=== PATIENT | male | born 1955 | race Caucasian/White ===

== ENCOUNTER → 2016-05-27 | Outpatient (CLI) | payer BC ==
[2016-05-27 16:19] LABS: ALT 35 U/L (21-72); AST 25 U/L (17-59)
== END | disposition home or self-care (01) ==
LOC: LABWHC1 15:27
PROVIDERS: ATTEND Podiatrist Foot & Ankle Surgery
DX: K74.60 Unspecified cirrhosis of liver (principal)
CPT/HCPCS: 36415; 84450; 84460

== ENCOUNTER → 2016-07-07 | Outpatient (CLI) | payer BC ==
[2016-07-07 09:16] LABS: ALT 32 U/L (21-72); AST 29 U/L (17-59)
== END | disposition home or self-care (01) ==
LOC: LABWHC1 08:21
PROVIDERS: ATTEND Podiatrist Foot & Ankle Surgery
DX: K74.60 Unspecified cirrhosis of liver (principal)
CPT/HCPCS: 36415; 84450; 84460

== ENCOUNTER 2020-12-02 08:42 | Day surgery (SDC) | payer MEDICARE, BC ==
[2020-11-28 08:43] VITALS: BMI 30.9
[~2020-12-02 08:42] MED LIST: LACTATED RINGERS 1,000 ML IV SCH; LIDOCAINE 1% (10MG/ML) FOR IV START INTRADERMA PRN
[2020-12-02 09:03] VITALS: RESP 16; TEMP 97.4
[2020-12-02] MEDS ORDERED: PROPOFOL 10 MG/ML 20 ML VIAL IV ONE (09:20)
[2020-12-02] MEDS ORDERED: fentaNYL (PF) 50 MCG/ML 2 ML AMP ONE (09:20)
[2020-12-02] MEDS ORDERED: MIDAZOLAM 2 MG/2 ML VIAL ONE (09:20)
--- NOTE | 2020-12-02 09:23 | P.GSHP ---
History of Present Illness H&P Date: 12/02/20 Chief Complaint: Colon cancer screening Patient here today for colonoscopy. Last colonoscopy 10 years ago. No bowel complaints. No family history of colon cancer. Past Medical History Past Medical History: No Reported History History of Any Multi-Drug Resistant Organisms: None Reported Past Surgical History: Appendectomy, Joint Replacement, Orthopedic Surgery Additional Past Surgical History / Comment(s): Bilateral hip replacements, right knee surgery, colonoscopy. Past Anesthesia/Blood Transfusion Reactions: No Reported Reaction Past Psychological History: No Psychological Hx Reported Smoking Status: Never smoker Past Alcohol Use History: Occasional Past Drug Use History: None Reported - Past Family History Sister(s) Family Medical History: Cancer Medications and Allergies Home Medications Medication Instructions Recorded Confirmed Type No Known Home Medications 11/28/20 12/02/20 History Allergies Allergy/AdvReac Type Severity Reaction Status Date / Time No Known Allergies Allergy Verified 12/02/20 09:04 Surgical - Exam Vital Signs Temp Pulse Resp BP Pulse Ox 97.4 F L 62 16 145/77 96 12/02/20 09:02 12/02/20 09:02 12/02/20 09:02 12/02/20 09:02 12/02/20 09:02 Physical exam: General: Well-developed, well-nourished HEENT: Normocephalic, sclerae nonicteric Abdomen: Nontender, nondistended Extremities: No edema Neuro: Alert and oriented Assessment and Plan (1) Colon cancer screening Narrative/Plan: Will proceed with colonoscopy at this time Current Visit: Yes Status: Acute Code(s): Z12.11 - ENCOUNTER FOR SCREENING FOR MALIGNANT NEOPLASM OF COLON SNOMED Code(s): 985170957
--- NOTE | 2020-12-02 09:36 | P.PCN ---
Date of Procedure: 12/02/20 Procedure(s) Performed: PREOPERATIVE DIAGNOSIS: Colon cancer screening POSTOPERATIVE DIAGNOSIS: Normal exam PROCEDURE: Colonoscopy ANESTHESIA: MAC SURGEON: Denny Steinberg M.D. SPECIMENS: None ENDOSCOPIC PROCEDURE: The patient was placed on the endoscopy table in the left decubitus position. The Olympus colonoscope was inserted into the anus and passed under direct visualization to the base of the cecum. The appendiceal orifice was visualized. From that point the scope was slowly withdrawn inspecti ng all surfaces carefully. There were no neoplastic inflammatory or polypoid lesions throughout the cecum, ascending, transverse, descending, sigmoid and rectum. There was no visible diverticulosis noted. Digital rectal examination was normal. The patient was taken to the recovery room in stable condition per anesthesia guidelines. RECOMMENDATIONS: Resume diet. Follow-up colonoscopy 10 years.
[2020-12-02 10:12] VITALS: BP 145/85; PULSE 61
== END 2020-12-02 10:20 | disposition home or self-care (01) ==
LOC: ORWHC2ENDO 08:42
PROVIDERS: ATTEND Surgery
DX: Z12.11 Encounter for screening for malignant neoplasm of colon (principal); Z90.49 Acquired absence of other specified parts of digestive tract; Z80.9 Family history of malignant neoplasm, unspecified
CPT/HCPCS: G0121; J2250; J3010; J2704

== ENCOUNTER 2023-01-01 07:19 | Inpatient (IN) | payer MEDICARE, BC ==
[2023-01-01] MEDS ORDERED: METOCLOPRAMIDE 5 MG/ML 2 ML VIAL IVP STA (07:36)
[2023-01-01] MEDS ORDERED: FAMOTIDINE 20 MG/2 ML VIAL IV STA (07:36)
[2023-01-01 07:57] LABS: Basophils % (A) 0 %; Eosinophils # (A) 0.2 k/uL (0-0.7); Eosinophils % (A) 2 %; HCT 45.1 % (39.0-53.0); HGB 15.5 gm/dL (13.0-17.5); Lymphocytes # (A) 1.7 k/uL (1.0-4.8); Lymphocytes % (A) 15 %; MCHC 34.4 g/dL (31.0-37.0); Mean Platelet Volume 7.5; Monocytes # (A) 0.7 k/uL (0-1.0); Monocytes % (A) 6 %; Neutrophils # (A) 8.9 k/uL (1.3-7.7); Neutrophils % (A) 76 %; Platelet Count 240 k/uL (150-450); RBC 4.84 m/uL (4.30-5.90); WBC 11.6 k/uL (3.8-10.6)
[2023-01-01 08:07] LABS: Partial Thromboplastin Time 23.8 sec (22.0-30.0)
--- NOTE | 2023-01-01 08:07 | ED ---
Abdominal Pain HPI - General Chief Complaint: Abdominal Pain Stated Complaint: indigestion Time Seen by Provider: 01/01/23 07:24 Source: patient, RN notes reviewed Mode of arrival: ambulatory Limitations: no limitations - History of Present Illness Initial Comments: 67-year-old male presents emergency Department chief complaint of epigastric abdominal pain. Patient states it started yesterday afternoon after eating a sandwich. He states that he stopped eating and took some antacids. Patient did not have any significant relief he states that he was able to go out there last night and states that he did not eat as much as usual but denies any difficulty eating. He states that home felt worse. He did take omeprazole. Patient states that he also made himself vomit but is not having relief of symptoms. He has meant that he has symptoms similar to this about a month ago but resolved on its own. Patient states he continues to have pain, states that he was stented, increasing bloating. He denies any pain radiates to his back, chest. Denies chest pain denies shortness of breath. He's had a prior appendectomy no other abdominal surgeries. Denies any current daily medications. Patient has no change in bowel habits denies any dysuria no fevers or chills - Related Data Home Medications Medication Instructions Recorded Confirmed No Known Home Medications 11/28/20 12/02/20 Allergies Allergy/AdvReac Type Severity Reaction Status Date / Time No Known Allergies Allergy Verified 01/01/23 07:23 Review of Systems ROS Statement: Those systems with pertinent positive or pertinent negative responses have been documented in the HPI. ROS Other: All systems not noted in ROS Statement are negative. Past Medical History Past Medical History: No Reported History History of Any Multi-Drug Resistant Organisms: None Reported Past Surgical History: Appendectomy, Joint Replacement, Orthopedic Surgery Additional Past Surgical History / Comment(s): Bilateral hip replacements, right knee surgery, colonoscopy. Past Anesthesia/Blood Transfusion Reactions: No Reported Reaction Past Psychological History: No Psychological Hx Reported Smoking Status: Never smoker Past Alcohol Use History: Occasional Past Drug Use History: None Reported - Past Family History Sister(s) Family Medical History: Cancer General Exam General appearance: alert, in no apparent distress Head exam: Present: atraumatic, normocephalic, normal inspection Eye exam: Present: normal appearance, PERRL, EOMI. Absent: scleral icterus, conjunctival injection, periorbital swelling ENT exam: Present: normal exam, normal oropharynx, mucous membranes moist Neck exam: Present: normal inspection, full ROM. Absent: tenderness, meningismus, lymphadenopathy Respiratory exam: Present: normal lung sounds bilaterally. Absent: respiratory distress, wheezes, rales, rhonchi, stridor Cardiovascular Exam: Present: regular rate, normal rhythm, normal heart sounds. Absent: systolic murmur, diastolic murmur, rubs, gallop, clicks GI/Abdominal exam: Present: soft, tenderness, normal bowel sounds. Absent: distended, guarding, rebound, rigid Back exam: Absent: CVA tenderness (R), CVA tenderness (L) Neurological exam: Present: alert Skin exam: Present: warm, dry, intact, normal color. Absent: rash Course Vital Signs 01/01/23 07:20 Temperature 98.1 F Pulse Rate 95 Respiratory 20 Rate Blood Pressure 163/87 O2 Sat by Pulse 97 Oximetry Medical Decision Making - Medical Decision Making Was pt. sent in by a medical professional or institution (Dr. PA, ART CONSERVATOR, urgent care, hospital, or care home...) When possible be specific @ -No Did you speak to anyone other than the patient for history (EMS, parent, family, police, friend...)? What history was obtained from this source @ -No Did you review nursing and triage notes (agree or disagree)? Why? @ -I reviewed and agree with nursing and triage notes Were old charts reviewed (outside hosp., previous admission, EMS record, old EKG, old radiological studies, urgent care reports/EKG's, care home records)? Report findings @ -No old charts were reviewed Differential Diagnosis (chest pain, altered mental status, abdominal pain women, abdominal pain men, vaginal bleeding, weakness, fever, dyspnea, syncope, headache, dizziness, GI bleed, back pain, seizure, CVA, palpatations, mental health, musculoskeletal)? @ -Differential Abdominal Pain Men: Appendicitis, cholecystitis, diverticulosis, ischemic bowel, pancreatitis, hepatitis, UTI, gastroenteritis, AAA, incarcerated hernia, bowel obstruction, constipation, inflammatory bowel, hepatitis, peptic ulcer disease, splenic infarction, perforated viscus, testicular torsion, this is not meant to be an all-inclusive listble EKG interpreted by me (3pts min.). @ -As above X-rays interpreted by me (1pt min.). @ -None done CT interpreted by me (1pt min.). @ -CT abdomen and pelvis shows evidence of acute cholecystitis gallbladder wall thickening, pericholecystic fluid and gallstones U/S interpreted by me (1pt. min.). @ -None done What testing was considered but not performed or refused? (CT, X-rays, U/S, labs)? Why? @ -None What meds were considered but not given or refused? Why? @ -None Did you discuss the management of the patient with other professionals (professionals i.e. , PA, ART CONSERVATOR, lab, RT, psych nurse, social service technician, kraft digester operator, teacher, chief human resources officer, outsole caser)? Give summary @ -Dr. Way for admission for acute cholecystitis Was smoking cessation discussed for >3mins.? @ -No Was critical care preformed (if so, how long)? @ -No Were there social determinants of health that impacted care today? How? (Homelessness, low income, unemployed, alcoholism, drug addiction, transportation, low edu. Level, literacy, decrease access to med. care, [facility] [facility], rehab)? @ -No Was there de-escalation of care discussed even if they declined (Discuss DNR or withdrawal of care, Hospice)? DNR status @ -No What co-morbidities impacted this encounter? (DM, HTN, Smoking, COPD, CAD, Cancer, CVA, ARF, Chemo, Hep., AIDS, mental health diagnosis, sleep apnea, morbid obesity)? @ -None Was patient admitted / discharged? Hospital course, mention meds given and route, prescriptions, significant lab abnormalities, going to OR and other pertinent info. @ -Admitted for acute cholecystitis based on CT, physical findings lab for studies reviewed. Undiagnosed new problem with uncertain prognosis? @ -No Drug Therapy requiring intensive monitoring for toxicity (Heparin, Nitro, Insulin, Cardizem)? @ -No Were any procedures done? @ -No Diagnosis/symptom? @ -Acute cholecystitis Acute, or Chronic, or Acute on Chronic? @ -Acute Uncomplicated (without systemic symptoms) or Complicated (systemic symptoms)? @ -Complicated Side effects of treatment? @ -No Exacerbation, Progression, or Severe Exacerbation? @ -No Poses a threat to life or bodily function? How? (Chest pain, [place], [place], pneumonia, PE, COPD, DKA, ARF, appy, cholecystitis, CVA, Diverticulitis, Homicidal, Suicidal, threat to staff... and all critical care pts) @ -yes surgical risk - Lab Data Result diagrams: 01/01/23 07:43 01/01/23 07:43 Lab Results 01/01/23 01/01/23 01/01/23 Range/Units 07:43 07:43 07:43 WBC 11.6 H (3.8-10.6) k/uL RBC 4.84 (4.30-5.90) m/uL Hgb 15.5 (13.0-17.5) gm/dL Hct 45.1 (39.0-53.0) % MCV 93.0 (80.0-100.0) fL MCH 32.0 (25.0-35.0) pg MCHC 34.4 (31.0-37.0) g/dL RDW 12.0 (11.5-15.5) % Plt Count 240 (150-450) k/uL MPV 7.5 Neutrophils % 76 % Lymphocytes % 15 % Monocytes % 6 % Eosinophils % 2 % Basophils % 0 % Neutrophils # 8.9 H (1.3-7.7) k/uL Lymphocytes # 1.7 (1.0-4.8) k/uL Monocytes # 0.7 (0-1.0) k/uL Eosinophils # 0.2 (0-0.7) k/uL Basophils # 0.0 (0-0.2) k/uL PT 11.0 (10.0-12.5) sec INR 1.0 (<1.2) APTT 23.8 (22.0-30.0) sec Sodium 137 (137-145) mmol/L Potassium 4.4 (3.5-5.1) mmol/L Chloride 103 (98-107) mmol/L Carbon Dioxide 26 (22-30) mmol/L Anion Gap 8 mmol/L BUN 19 (9-20) mg/dL Creatinine 0.83 (0.66-1.25) mg/dL Est GFR (CKD-EPI)AfAm >90 (>60 ml/min/1.73 sqM) Est GFR (CKD-EPI)NonAf >90 (>60 ml/min/1.73 sqM) Glucose 141 H (74-99) mg/dL Plasma Lactic Acid Gregory (0.7-2.0) mmol/L Calcium 9.4 (8.4-10.2) mg/dL Total Bilirubin 0.9 (0.2-1.3) mg/dL AST 30 (17-59) U/L ALT 64 H (4-49) U/L Alkaline Phosphatase 60 (38-126) U/L Troponin I (0.000-0.034) ng/mL Total Protein 7.3 (6.3-8.2) g/dL Albumin 4.3 (3.5-5.0) g/dL Amylase 53 (30-110) U/L Lipase 90 (23-300) U/L Urine Color Urine Appearance (Clear) Urine pH (5.0-8.0) Ur Specific Dudley (1.001-1.035) Urine Protein (Negative) Urine Glucose (UA) (Negative) Urine Ketones (Negative) Urine Blood (Negative) Urine Nitrite (Negative) Urine Bilirubin (Negative) Urine Urobilinogen (<2.0) mg/dL Ur Leukocyte Esterase (Negative) 01/01/23 01/01/23 01/01/23 Range/Units 07:43 07:43 08:27 WBC (3.8-10.6) k/uL RBC (4.30-5.90) m/uL Hgb (13.0-17.5) gm/dL Hct (39.0-53.0) % MCV (80.0-100.0) fL MCH (25.0-35.0) pg MCHC (31.0-37.0) g/dL RDW (11.5-15.5) % Plt Count (150-450) k/uL MPV Neutrophils % % Lymphocytes % % Monocytes % % Eosinophils % % Basophils % % Neutrophils # (1.3-7.7) k/uL Lymphocytes # (1.0-4.8) k/uL Monocytes # (0-1.0) k/uL Eosinophils # (0-0.7) k/uL Basophils # (0-0.2) k/uL PT (10.0-12.5) sec INR (<1.2) APTT (22.0-30.0) sec Sodium (137-145) mmol/L Potassium (3.5-5.1) mmol/L Chloride (98-107) mmol/L Carbon Dioxide (22-30) mmol/L Anion Gap mmol/L BUN (9-20) mg/dL Creatinine (0.66-1.25) mg/dL Est GFR (CKD-EPI)AfAm (>60 ml/min/1.73 sqM) Est GFR (CKD-EPI)NonAf (>60 ml/min/1.73 sqM) Glucose (74-99) mg/dL Plasma Lactic Acid Gregory 1.0 (0.7-2.0) mmol/L Calcium (8.4-10.2) mg/dL Total Bilirubin (0.2-1.3) mg/dL AST (17-59) U/L ALT (4-49) U/L Alkaline Phosphatase (38-126) U/L Troponin I 0.017 (0.000-0.034) ng/mL Total Protein (6.3-8.2) g/dL Albumin (3.5-5.0) g/dL Amylase (30-110) U/L Lipase (23-300) U/L Urine Color Yellow Urine Appearance Clear (Clear) Urine pH 6.0 (5.0-8.0) Ur Specific Dudley 1.024 (1.001-1.035) Urine Protein Trace H (Negative) Urine Glucose (UA) Negative (Negative) Urine Ketones Negative (Negative) Urine Blood Negative (Negative) Urine Nitrite Negative (Negative) Urine Bilirubin Negative (Negative) Urine Urobilinogen <2.0 (<2.0) mg/dL Ur Leukocyte Esterase Negative (Negative) - EKG Data -: EKG Interpreted by Ga EKG Comments: EKG/7:31/bradycardia with a rate of 5 WI 155 QRS 102 QT/QTC 418/406 Disposition Clinical Impression: Acute cholecystitis Disposition: ADMITTED IP TO THIS HOSP Condition: Fair Referrals: Donavon Mckinney MD [Primary Care Provider] - 1-2 days Time of Disposition: 09:43
[2023-01-01 08:25] LABS: ALT 64 U/L (4-49); AST 30 U/L (17-59); African American GFR (CKD) >90 (>60 ml/min/1.73 sqM); Albumin 4.3 g/dL (3.5-5.0); Alkaline Phosphatase 60 U/L (38-126); Amylase 53 U/L (30-110); Anion Gap 8 mmol/L; Blood Urea Nitrogen 19 mg/dL (9-20); Calcium 9.4 mg/dL (8.4-10.2); Carbon Dioxide 26 mmol/L (22-30); Chloride 103 mmol/L (98-107); Glucose 141 mg/dL (74-99); Lipase 90 U/L (23-300); Non-African American GFR(CKD) >90 (>60 ml/min/1.73 sqM); Potassium 4.4 mmol/L (3.5-5.1); Sodium 137 mmol/L (137-145); Total Bilirubin 0.9 mg/dL (0.2-1.3); Total Protein 7.3 g/dL (6.3-8.2)
[2023-01-01 08:40] LABS: Appearance,Urine Clear (Clear); Bilirubin,Urine Negative (Negative); Blood,Urine Negative (Negative); Color,Urine Yellow; Glucose,Urine (UA) Negative (Negative); Ketones,Urine Negative (Negative); Leukocyte Esterase,Urine Negative (Negative); Nitrite,Urine Negative (Negative); Protein,Urine Trace (Negative); Specific Gravity,Urine 1.024 (1.001-1.035); Urobilinogen,Urine <2.0 mg/dL (<2.0)
--- NOTE | 2023-01-01 09:26 | CT ---
EXAMINATION TYPE: CT abdomen pelvis w con DATE OF EXAM: 01/01/2023 COMPARISON: None HISTORY: Epigastric pain and pressure CT DLP: 1571.5 mGycm CONTRAST: CT scan of the abdomen and pelvis is performed without Oral Contrast and with IV Contrast, patient in jected with 100 mL of Isovue 300. FINDINGS: LUNG BASES-: No visible nodule. No infiltrate. LIVER/GB: The gallbladder is hydropic and measures 10.1 cm in length. There are multiple small gallst ones seen with gallbladder wall thickening and pericholecystic fluid. Acute cholecystitis is difficul t to exclude. Correlate clinically. No space occupying hepatic lesion. Biliary tree is of normal agnes nelsy. PANCREAS: No inflammation. No distinct mass. SPLEEN: No splenic enlargement. No lesion seen. ADRENALS: No nodule. No thickening. KIDNEYS/BLADDER: No hydronephrosis. No nephrolithiasis. No distinct renal mass. Urinary bladder g rossly unremarkable. BOWEL: Appendectomy changes noted. Normal bowel caliber. No inflammation. GENITAL ORGANS: No gross abnormality. LYMPH NODES: No greater than 1cm abdominal or pelvic lymph nodes are appreciated. AORTA: No significant abnormality. OSSEOUS STRUCTURES: Bilateral hip prostheses noted resulting in streak artifact within the pelvis hawkins iting evaluation. OTHER: No significant additional abnormality is seen. IMPRESSION: 1. Correlate for acute cholecystitis.
[2023-01-01] MEDS ORDERED: NALOXONE 0.4 MG/ML 1 ML VIAL IV PRN (09:51)
[2023-01-01] MEDS ORDERED: ACETAMINOPHEN TAB 325 MG TAB PO PRN (09:51)
[2023-01-01] MEDS ORDERED: HYDROmorphone 0.5 MG/0.5 ML SYRINGE IVP PRN (09:51)
[2023-01-01] MEDS ORDERED: HYDROcodone/APAP 5-325MG 1 EACH TAB PO PRN (09:51)
[2023-01-01] MEDS ORDERED: SODIUM CHLORIDE 0.9% 1,000 ML IV SCH (10:00)
[2023-01-01] MEDS: PIPERACILLIN-TAZOBACTAM 3.375 GM in SODIUM CHLORIDE 0.9% 100 ML IVPB SCH ×2 (11:17→16:18)
[2023-01-01] MEDS: ONDANSETRON 4 MG/2 ML VIAL IVP PRN (11:27)
--- NOTE | 2023-01-01 11:28 | P.GSHP ---
History of Present Illness H&P Date: 01/01/23 CHIEF COMPLAINT: Abdominal pain HISTORY OF PRESENT ILLNESS: The patient is a 67 year old male who presents with diffuse abdominal pain after 1:30 pm yesterday eating a meatloaf sandwich. He reports new moderate abdominal distention. He reports no prior stress tests. He reports no prior abnormal EKG although he sees his doctor routinely yearly. He had diagnostic studies demonstrating new acute cholecystitis. He denies being on any medications at home. PAST MEDICAL HISTORY: See list and reviewed PAST SURGICAL HISTORY: See list and reviewed MEDICATIONS: See list and reviewed ALLERGIES: See list and reviewed SOCIAL HISTORY: See list and reviewed FAMILY HISTORY: See list and reviewed REVIEW OF ORGAN SYSTEMS: CONSTITUTIONAL: No fevers or chills. No recent weight loss. EYES: Denies any trouble with vision. No glasses. HEENT: No difficulties with hearing. No nosebleeds. No difficulty swallowing. RESPIRATORY: Denies pneumonia. Denies any troubles with breathing or dyspnea on exertion. CARDIOVASCULAR: Denies any chest pain, palpitations, or recent heart attacks. GASTROINTESTINAL: Denies prior abdominal pain. He gets routine colonoscopy GENITOURINARY: Denies any blood in urine or increased urinary frequency. NEUROLOGICAL: Denies any numbness or tingling along the distal extremities. No seizure disorders or headaches. MUSCULOSKELETAL: Denies any back pain, stiffness or joint arthritis. SKIN: No current skin cancer. No rash. PSYCHIATRIC: Denies current depression or suicidal thoughts. ENDOCRINE: Denies current thyroid disorders. Denies any blood sugar glucose intolerance. HEME/LYMPHATIC: Denies any lumps and bumps around the neck. No recent deep venous thrombosis. ALLERGY/IMMUNOLOGY: No immunoglobulin therapy. No immune deficiencies. BREAST: Denies current breast lumps, pain or nipple discharge. PHYSICAL EXAM: VITALS: Reviewed CONSTITUTIONAL: Well developed and in no acute distress. EYES: Conjuctivae without sclera icterus. Extraocular movements grossly intact. HEAD, EARS, NOSE, THROAT: Moist buccal mucosa. Head is atraumatic, normocephalic . Hears conversational speech. No nasal drainage. NECK: Supple. No JV distention. No thyroidomegaly. RESPIRATORY: Non-labored respirations and equal bilateral excursions. No gross wheezes. CARDIOVASCULAR: Palpable 2+ radial pulses. ABDOMEN: Distended. No diffuse peritonitis. LYMPH: No neck lymphadenopathy. MUSCULOSKELETAL: No clubbing cyanosis or edema SKIN: Warm and well perfused with good skin turgor. NEUROLOGIC: Cranial nerves II through XII grossly intact. No focal or lateralizing signs. PSYCH: Appropriate affect. Alert and oriented to person, place and time. Displays appropriate insight. CLINCAL LABS: Reviewed. WBC elevated. LFTs elevated. IMAGING: Independently reviewed. CT of the abdomen and pelvis independently reviewed demonstrated distended gallbladder presence of gallstones and inflammatory changes about the gallbladder. Features consistent with cholecystitis. Moderate stool along the ascending colon. This is my independent interpretation. RADIOLOGY: Report reviewed. Early acute cholecystitis EKG: Abnormal EKG with sinus bradycardia, atrial enlargement RECORDS: previous old records reviewed. Prior assessment for cirrhosis. ASSESSMENT: 1. Acute cholecystitis 2. Obesity due to excess calories, BMI 31.7 3. Abnormal LFTs 4. History cirrhosis per records 5. Abnormal EKG PLAN: 1. IV fluid hydration. 2. IV antibiotics. 3. Cardiology consultation for new abnormal EKG and cardiac risk assessment prior to surgery. 4. ECHO ordered for new abnormal EKG 5. Clear liquid diet/low fat diet in the interim. 6. Inpatient hospitalization for cholecystitis, abnormal EKG and IV antibiotics. ADVANCE DIRECTIVE: Past Medical History Past Medical History: No Reported History History of Any Multi-Drug Resistant Organisms: None Reported Past Surgical History: Appendectomy, Joint Replacement, Orthopedic Surgery Additional Past Surgical History / Comment(s): Bilateral hip replacements, right knee surgery, colonoscopy. Past Anesthesia/Blood Transfusion Reactions: No Reported Reaction Past Psychological History: No Psychological Hx Reported Smoking Status: Never smoker Past Alcohol Use History: Occasional Past Drug Use History: None Reported - Past Family History Sister(s) Family Medical History: Cancer Medications and Allergies Home Medications Medication Instructions Recorded Confirmed Type No Known Home Medications 11/28/20 01/01/23 History Allergies Allergy/AdvReac Type Severity Reaction Status Date / Time No Known Allergies Allergy Verified 01/01/23 10:41 Surgical - Exam Vital Signs Temp Pulse Resp BP Pulse Ox 98.1 F 95 20 163/87 97 01/01/23 07:20 01/01/23 07:20 01/01/23 07:20 01/01/23 07:20 01/01/23 07:20 Results - Labs 01/01/23 07:43 01/01/23 07:43 Abnormal Lab Results - Last 24 Hours (Table) 01/01/23 01/01/23 01/01/23 Range/Units 07:43 07:43 08:27 WBC 11.6 H (3.8-10.6) k/uL Neutrophils # 8.9 H (1.3-7.7) k/uL Glucose 141 H (74-99) mg/dL ALT 64 H (4-49) U/L Urine Protein Trace H (Negative) Diabetes panel 01/01/23 Range/Units 07:43 Sodium 137 (137-145) mmol/L Potassium 4.4 (3.5-5.1) mmol/L Chloride 103 (98-107) mmol/L Carbon Dioxide 26 (22-30) mmol/L BUN 19 (9-20) mg/dL Creatinine 0.83 (0.66-1.25) mg/dL Glucose 141 H (74-99) mg/dL Calcium 9.4 (8.4-10.2) mg/dL AST 30 (17-59) U/L ALT 64 H (4-49) U/L Alkaline Phosphatase 60 (38-126) U/L Total Protein 7.3 (6.3-8.2) g/dL Albumin 4.3 (3.5-5.0) g/dL Calcium panel 01/01/23 Range/Units 07:43 Calcium 9.4 (8.4-10.2) mg/dL Albumin 4.3 (3.5-5.0) g/dL Pituitary panel 01/01/23 Range/Units 07:43 Sodium 137 (137-145) mmol/L Potassium 4.4 (3.5-5.1) mmol/L Chloride 103 (98-107) mmol/L Carbon Dioxide 26 (22-30) mmol/L BUN 19 (9-20) mg/dL Creatinine 0.83 (0.66-1.25) mg/dL Glucose 141 H (74-99) mg/dL Calcium 9.4 (8.4-10.2) mg/dL Adrenal panel 01/01/23 Range/Units 07:43 Sodium 137 (137-145) mmol/L Potassium 4.4 (3.5-5.1) mmol/L Chloride 103 (98-107) mmol/L Carbon Dioxide 26 (22-30) mmol/L BUN 19 (9-20) mg/dL Creatinine 0.83 (0.66-1.25) mg/dL Glucose 141 H (74-99) mg/dL Calcium 9.4 (8.4-10.2) mg/dL Total Bilirubin 0.9 (0.2-1.3) mg/dL AST 30 (17-59) U/L ALT 64 H (4-49) U/L Alkaline Phosphatase 60 (38-126) U/L Total Protein 7.3 (6.3-8.2) g/dL Albumin 4.3 (3.5-5.0) g/dL
[2023-01-01] MEDS: SIMETHICONE 40 MG/0.6 ML DROPS 2,000 MG/30 ML BOTTLE PO SCH ×3 (14:18→22:11)
[2023-01-01] MEDS: SODIUM CHLORIDE 0.9% 1,000 ML IV SCH ×2 (14:18→21:51)
--- NOTE | 2023-01-01 17:19 | P.CRDCN ---
History of Present Illness Consult date: 01/01/23 History of present illness: HISTORY OF PRESENTING ILLNESS Patient is a 67-year-old male with no significant past medical history who presented to the hospital with the chief complaint of epigastric and right upper quadrant abdominal pain after eating the sandwich yesterday. Since eating he has been feeling bloated and uncomfortable. His CT abdomen showed concerns of possible acute cholecystitis and he is being evaluated by surgery team for possible cholecystectomy. Cardiology was consulted for perioperative cardiac risk assessment. Patient denies any prior cardiac history. He denies any history of cancers. He denies any prior history of stroke TIA hypertension diabetes. He denies any family history of premature coronary artery disease cancers. He denies any history of smoking decreased reveals marijuana use or alcohol use. He reports good exercise tolerance with no reduction in his exercise capacity lately. He denies any active chest pain chest pressure with exertion, denies any shortness of breath with exertion orthopnea or paroxysmal nocturnal dyspnea. He denies any palpitations lightheadedness or dizziness His ECG shows sinus bradycardia with no significant ST-T wave changes diagnostic for ischemia His echo cardiac exam showed an EF of 55% with no regional wall motion abnormality or major valvular dysfunction no concerns of significant diastolic dysfunction REVIEW OF SYSTEMS 14 point review of system is negative except what is mentioned above in HPI. PHYSICAL EXAMINATION Vital signs reviewed. Head: Normocephalic. Eyes: Sclerae nonicteric. Neck: Brisk carotid upstroke, no jugular venous distention. Lungs: Clear to auscultation. Heart: Regular rate and rhythm, S1-S2, no S3, no murmur or rub. Abdomen: Soft nontender, positive bowel sounds no organomegaly. Extremities: No edema, intact distal pulses. ASSESSMENT Perioperative cardiac risk assessment for cholecystectomy Abdominal pain likely due to acute cholecystitis His ECG shows sinus bradycardia with no significant ST-T wave changes diagnostic for ischemia His echo cardiac exam showed an EF of 55% with no regional wall motion abnormality or major valvular dysfunction no concerns of significant diastolic dysfunction PLAN No signs and symptoms of acute ischemia or arrhythmia or congestive heart failure. No cardiac vessel contraindications to the surgery. Patient is at low cardiovascular risk for this surgery. Past Medical History Past Medical History: No Reported History History of Any Multi-Drug Resistant Organisms: None Reported Past Surgical History: Appendectomy, Joint Replacement, Orthopedic Surgery Additional Past Surgical History / Comment(s): Bilateral hip replacements, right knee surgery, colonoscopy. Past Anesthesia/Blood Transfusion Reactions: No Reported Reaction Past Psychological History: No Psychological Hx Reported Smoking Status: Never smoker Past Alcohol Use History: Occasional Past Drug Use History: None Reported - Past Family History Sister(s) Family Medical History: Cancer Medications and Allergies Home Medications Medication Instructions Recorded Confirmed Type No Known Home Medications 11/28/20 01/01/23 History Allergies Allergy/AdvReac Type Severity Reaction Status Date / Time No Known Allergies Allergy Verified 01/01/23 10:41 Physical Exam Vitals: Vital Signs Temp Pulse Pulse Resp BP BP Pulse Ox 01/01/23 14:00 98.7 F 57 L 16 170/82 97 01/01/23 07:20 98.1 F 95 20 163/87 97 Intake and Output 01/01/23 01/01/23 01/01/23 06:59 14:59 22:59 Other: Weight 108.862 kg Results 01/01/23 07:43 01/01/23 07:43 Cardiac Enzymes 01/01/23 01/01/23 Range/Units 07:43 07:43 AST 30 (17-59) U/L Troponin I 0.017 (0.000-0.034) ng/mL Coagulation 01/01/23 Range/Units 07:43 PT 11.0 (10.0-12.5) sec APTT 23.8 (22.0-30.0) sec CBC 01/01/23 Range/Units 07:43 WBC 11.6 H (3.8-10.6) k/uL RBC 4.84 (4.30-5.90) m/uL Hgb 15.5 (13.0-17.5) gm/dL Hct 45.1 (39.0-53.0) % Plt Count 240 (150-450) k/uL Comprehensive Metabolic Panel 01/01/23 Range/Units 07:43 Sodium 137 (137-145) mmol/L Potassium 4.4 (3.5-5.1) mmol/L Chloride 103 (98-107) mmol/L Carbon Dioxide 26 (22-30) mmol/L BUN 19 (9-20) mg/dL Creatinine 0.83 (0.66-1.25) mg/dL Glucose 141 H (74-99) mg/dL Calcium 9.4 (8.4-10.2) mg/dL AST 30 (17-59) U/L ALT 64 H (4-49) U/L Alkaline Phosphatase 60 (38-126) U/L Total Protein 7.3 (6.3-8.2) g/dL Albumin 4.3 (3.5-5.0) g/dL Current Medications Generic Name Dose Route Start Last Admin Trade Name Freq PRN Reason Stop Dose Admin Acetaminophen 650 mg 01/01/23 09:51 Acetaminophen Tab 325 Mg Tab PO Q6HR PRN Mild Pain or Fever > 100.5 Hydrocodone Bitart/Acetaminophen 1 each 01/01/23 09:51 Hydrocodone/Apap 5-325mg 1 Each Tab PO Q4HR PRN Moderate Pain (Scale 4 to 6) Hydromorphone HCl 0.5 mg 01/01/23 09:51 Hydromorphone 0.5 Mg/0.5 Ml Syringe IVP Q3HR PRN Moderate Pain (Scale 4 to 6) Piperacillin Sod/Tazobactam 100 mls @ 25 mls/hr 01/01/23 10:00 01/01/23 16:18 Sod 3.375 gm/ Sodium Chloride IVPB 25 mls/hr Q8HR LINDSEY Administration Protocol Sodium Chloride 1,000 mls @ 130 mls/hr 01/01/23 13:30 01/01/23 14:18 Saline 0.9% IV 130 mls/hr .[id number] LINDSEY Administration Naloxone HCl 0.2 mg 01/01/23 09:51 Naloxone 0.4 Mg/Ml 1 Ml Vial IV Q2M PRN Opioid Reversal Ondansetron HCl 4 mg 01/01/23 09:51 01/01/23 11:27 Ondansetron 4 Mg/2 Ml Vial IVP 4 mg Q8HR PRN Administration Nausea And Vomiting Simethicone 100 mg 01/01/23 13:30 01/01/23 14:18 Simethicone 40 Mg/0.6 Ml Drops 2,000 Mg/30 Ml Bottle PO 100 mg QID LINDSEY Administration Intake and Output 01/01/23 01/01/23 01/01/23 06:59 14:59 22:59 Other: Weight 108.862 kg Patient Weight 01/02/23 06:59 Weight 108.862 kg 01/01/23 07:43 01/01/23 07:43
--- NOTE | 2023-01-01 19:23 | CA ---
Transthoracic Echo Report Name: John Wheeler Age: 67 Gender: M : 1955 Exam Date: 01/01/2023 16:29 Exam Location: [place] [facility] Ht (in): 73 Wt (lb): 240 Ordering Physician: Samreen Way MD Attending/Referring Phys: Seamus GAVIRIA Gas Technician Irma Dorado [facility] Procedure CPT: Indications: New abnormal EKG, atypical chest pain Cardiac Hx: Technical Quality: Technically difficult study Contrast 1: Total Dose (mL): 5 Contrast 2: Total Dose (mL): MEASUREMENTS (Male / Female) Normal Values 2D ECHO LV Diastolic Diameter PLAX 4.4 cm 4.2 - 5.9 / 3.9 - 5.3 cm LV Systolic Diameter PLAX 2.6 cm IVS Diastolic Thickness 1.0 cm 0.6 - 1.0 / 0.6 - 0.9 cm LVPW Diastolic Thickness 1.0 cm 0.6 - 1.0 / 0.6 - 0.9 cm LV Relative Wall Thickness 0.5 LVOT Diameter 2.0 cm Ascending Aorta Diameter 3.2 cm M-MODE Aortic Root Diameter MM 3.3 cm LA Systolic Diameter MM 3.4 cm LA Ao Ratio MM 1.1 AV Cusp Separation MM 2.4 cm DOPPLER AV Peak Velocity 146.1 cm/s AV Peak Gradient 8.5 mmHg AV Mean Velocity 114.5 cm/s AV Mean Gradient 5.6 mmHg AV Velocity Time Integral 27.5 cm LVOT Peak Velocity 127.2 cm/s LVOT Peak Gradient 6.5 mmHg LVOT Velocity Time Integral 25.6 cm LVOT Stroke Volume 83.3 cm??? LVOT Stroke Volume Index 35.8 ml/m??? LVOT Cardiac Index 2328.7 cm???/min???m??? AV Area Cont Eq vti 3.0 cm??? AV Area Cont Eq pk 2.8 cm??? Mitral E Point Velocity 57.1 cm/s Mitral A Point Velocity 88.7 cm/s Mitral E to A Ratio 0.6 MV Deceleration Time 159.0 ms LV E' Lateral Velocity 8.8 cm/s Mitral E to LV E' Lateral Ratio 6.5 LV E' Septal Velocity 7.7 cm/s Mitral E to LV E' Septal Ratio 7.4 TR Peak Velocity 249.6 cm/s TR Peak Gradient 24.9 mmHg Right Atrial Pressure 3.0 mmHg Pulmonary Artery Systolic Pressu 27.9 mmHg Right Ventricular Systolic Press 27.9 mmHg FINDINGS Left Ventricle Left ventricular cavity size normal. Left ventricular wall thickness at upper limits of normal. Normal left ventricular systolic function with no obvious regional wall motion abnormalities. Left ventricular ejection fraction is estimated at 60-65%. Right Ventricle Right ventricle not well visualized. Right Atrium Mild right atrial dilatation. Left Atrium Left atrial size at the upper limits of normal. Mitral Valve Structurally normal mitral valve. Trace mitral regurgitation. Aortic Valve Trileaflet aortic valve. Focal thickening of the aortic valve cusps. No aortic valve stenosis or regurgitation. Tricuspid Valve Tricuspid valve not well visualized. Trace tricuspid regurgitation. Pulmonic Valve Pulmonic valve not well visualized. Pericardium No pericardial effusion. Echo free space anterior to the right ventricle likely represents a fat pad. Aorta Normal size aortic root and proximal ascending aorta. CONCLUSIONS Normal LV size and systolic function, LVEF 60% No significant wall motion abnormality No significant diastolic dysfunction No significant chamber size abnormality No significant valvular dysfunction Previewed by: Dr Vincent Escobar (Electronically Signed) Final Date: 01 January 2023 19:22
[2023-01-02] MEDS: ONDANSETRON 4 MG/2 ML VIAL IVP PRN (00:15)
[2023-01-02] MEDS: PIPERACILLIN-TAZOBACTAM 3.375 GM in SODIUM CHLORIDE 0.9% 100 ML IVPB SCH ×3 (00:16→15:40)
[2023-01-02] MEDS ORDERED: ACETAMINOPHEN TAB 500 MG TAB PO PRN (06:50)
[2023-01-02] MEDS ORDERED: HYDROmorphone 1 MG/ML 1 ML SYRINGE IVP PRN (06:50)
[2023-01-02 09:32] LABS: Basophils % (A) 0 %; Eosinophils % (A) 0 %; HCT 43.6 % (39.0-53.0); HGB 14.7 gm/dL (13.0-17.5); Lymphocytes # (A) 1.5 k/uL (1.0-4.8); Lymphocytes % (A) 10 %; MCH 31.6 pg (25.0-35.0); MCHC 33.6 g/dL (31.0-37.0); Mean Platelet Volume 7.9; Monocytes # (A) 0.9 k/uL (0-1.0); Monocytes % (A) 6 %; Neutrophils # (A) 12.3 k/uL (1.3-7.7); Neutrophils % (A) 83 %; Platelet Count 238 k/uL (150-450); RBC 4.64 m/uL (4.30-5.90); RDW 12.1 % (11.5-15.5); WBC 14.8 k/uL (3.8-10.6)
[2023-01-02 09:42] LABS: ALT 74 U/L (4-49); AST 42 U/L (17-59); African American GFR (CKD) >90 (>60 ml/min/1.73 sqM); Albumin 3.8 g/dL (3.5-5.0); Albumin/Globulin Ratio 1.4; Alkaline Phosphatase 57 U/L (38-126); Anion Gap 12 mmol/L; Blood Urea Nitrogen 14 mg/dL (9-20); Calcium 8.9 mg/dL (8.4-10.2); Carbon Dioxide 24 mmol/L (22-30); Chloride 101 mmol/L (98-107); Globulin 2.8 g/dL; Glucose 115 mg/dL (74-99); Non-African American GFR(CKD) 86 (>60 ml/min/1.73 sqM); Potassium 3.9 mmol/L (3.5-5.1); Sodium 137 mmol/L (137-145); Total Bilirubin 1.5 mg/dL (0.2-1.3); Total Protein 6.6 g/dL (6.3-8.2)
[2023-01-02] MEDS: HEPARIN SODIUM,PORCINE 5,000 UNIT/ML 1 ML VIAL SQ SCH ×2 (10:11→21:29)
[2023-01-02] MEDS: SIMETHICONE 40 MG/0.6 ML DROPS 2,000 MG/30 ML BOTTLE PO SCH ×4 (10:11→21:30)
[2023-01-02] MEDS: SODIUM CHLORIDE 0.9% 1,000 ML IV SCH ×3 (10:19→21:29)
--- NOTE | 2023-01-02 12:54 | P.PN ---
Subjective Progress Note Date: 01/02/23 CHIEF COMPLAINT: Abdominal pain HISTORY OF PRESENT ILLNESS: The patient is a 67 year old male who presents with cholecystitis per CT scan. He had moderate abdominal distention yesterday. He has been seen and cleared from cardiology. He reports nausea and vomiting late afternoon, but feels better today after gas-x. He is tolerating liquids. Family/friends at bedside. REVIEW OF ORGAN SYSTEMS: Emesis yesterday. No chest pain. No shortness of breath. Temp 99.0-F PHYSICAL EXAM: VITALS: Reviewed CONSTITUTIONAL: Well developed and in no acute distress. EYES: Conjuctivae without sclera icterus. Extraocular movements grossly intact. HEAD, EARS, NOSE, THROAT: Moist buccal mucosa. Head is atraumatic, normocephalic. Hears conversational speech. No nasal drainage. RESPIRATORY: Non-labored respirations and equal bilateral excursions. No gross wheezes. CARDIOVASCULAR: Palpable 2+ radial pulses. ABDOMEN: Decreased distention. MUSCULOSKELETAL: No clubbing cyanosis or edema SKIN: Warm and well perfused with good skin turgor. NEUROLOGIC: Cranial nerves II through XII grossly intact. No focal or lateralizing signs. PSYCH: Appropriate affect. Alert and oriented to person, place and time. Displays appropriate insight. CLINCAL LABS: Reviewed. WBC elevated from 11.0 to 14.0, total bilirubin elevated. ECHO: LVEF 60% without abnormalities ASSESSMENT: 1. Acute cholecystitis 2. Obesity due to excess calories, BMI 31.7 3. Abnormal LFTs 4. History cirrhosis per records 5. Abnormal EKG 6. Choledocholithiasis PLAN: 1. Total bilirubin is elevated with concern for choledocholithiasis. Will obtain US gallbladder/liver to investigate for CBD stones. 2. Presence of CBD stones/dilated CBD will warrant ERCP and GI consult reviewed with patient. 3. Antibiotics adjusted with addition of flagyl 4. Continue gas-x 5. Repeat CBC and CMP 6. NPO after midnight for cholecystectomy. 7. Inpatient admission for choledocholithiais. 8. Care plan reviewed and all questions answered. Objective - Vital Signs Vital signs: Vital Signs Temp 99.0 F 01/02/23 06:53 Pulse 85 01/02/23 06:53 Resp 18 01/02/23 06:53 BP 116/65 01/02/23 06:53 Pulse Ox 94 L 01/02/23 06:53 FiO2 Intake & Output 01/01/23 01/02/23 01/02/23 18:59 06:59 18:59 Weight 108.862 kg Other: Voiding Method Toilet Urinal # Voids 1 3 - Labs CBC & Chem 7: 01/02/23 07:37 01/02/23 07:37 Labs: Abnormal Lab Results - Last 24 Hours (Table) 01/02/23 01/02/23 Range/Units 07:37 07:37 WBC 14.8 H (3.8-10.6) k/uL Neutrophils # 12.3 H (1.3-7.7) k/uL Glucose 115 H (74-99) mg/dL Total Bilirubin 1.5 H (0.2-1.3) mg/dL ALT 74 H (4-49) U/L
[2023-01-02] MEDS ORDERED: INDOCYANINE GREEN 25 MG VIAL IV STA (12:56)
[2023-01-02] MEDS: metroNIDAZOLE-NS PMX 500 MG in SALINE 1 100ML.BAG IVPB SCH ×2 (14:27→17:55)
[2023-01-02 17:37] LABS: Basophils % (A) 0 %; Eosinophils # (A) 0.1 k/uL (0-0.7); Eosinophils % (A) 1 %; HCT 42.8 % (39.0-53.0); HGB 14.5 gm/dL (13.0-17.5); Lymphocytes # (A) 1.2 k/uL (1.0-4.8); Lymphocytes % (A) 9 %; MCH 31.8 pg (25.0-35.0); MCHC 33.9 g/dL (31.0-37.0); MCV 93.6 fL (80.0-100.0); Mean Platelet Volume 7.8; Monocytes # (A) 0.9 k/uL (0-1.0); Monocytes % (A) 7 %; Neutrophils # (A) 10.7 k/uL (1.3-7.7); Neutrophils % (A) 82 %; Platelet Count 210 k/uL (150-450); RBC 4.57 m/uL (4.30-5.90); WBC 13.1 k/uL (3.8-10.6)
[2023-01-02 17:53] LABS: ALT 58 U/L (4-49); AST 31 U/L (17-59); African American GFR (CKD) >90 (>60 ml/min/1.73 sqM); Albumin 3.6 g/dL (3.5-5.0); Albumin/Globulin Ratio 1.4; Alkaline Phosphatase 60 U/L (38-126); Anion Gap 8 mmol/L; Blood Urea Nitrogen 14 mg/dL (9-20); Calcium 8.7 mg/dL (8.4-10.2); Carbon Dioxide 26 mmol/L (22-30); Chloride 100 mmol/L (98-107); Globulin 2.6 g/dL; Glucose 106 mg/dL (74-99); Non-African American GFR(CKD) 85 (>60 ml/min/1.73 sqM); Sodium 134 mmol/L (137-145); Total Bilirubin 1.4 mg/dL (0.2-1.3); Total Protein 6.2 g/dL (6.3-8.2)
[2023-01-03] MEDS: PIPERACILLIN-TAZOBACTAM 3.375 GM in SODIUM CHLORIDE 0.9% 100 ML IVPB SCH ×3 (00:20→20:56)
[2023-01-03] MEDS: metroNIDAZOLE-NS PMX 500 MG in SALINE 1 100ML.BAG IVPB SCH ×5 (00:21→23:01)
[2023-01-03] MEDS: SODIUM CHLORIDE 0.9% 1,000 ML IV SCH ×3 (05:47→20:57)
--- NOTE | 2023-01-03 08:32 | US ---
EXAMINATION TYPE: US gallbladder DATE OF EXAM: 01/03/2023 COMPARISON: CT abdomen and pelvis 01/01/2023 CLINICAL INDICATION: Male, 67 years old with history of CBD stones, cholecystitis; CT showed stones a nd wall thickening. Pain. TECHNIQUE: Multiple sonographic images of the right upper quadrant are obtained. 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 Wall thickening. Gallbladder head not visualized due t o bowel gas and stones. Evidence for sonographic Shin's sign: neg CBD: Obscured by overlying bowel gas Right Kidney: No hydronephrosis or masses seen, limited due to bowel gas The visualized portions of the think is unremarkable. The head and tail are secured by overlying omar l gas. Limited visualization of the liver due to bowel gas without gross amount. Cholelithiasis ident ified. There is wall thickening demonstrated. No pericholecystic fluid. Per woods boss, negative son ographic Shin sign. Common bile duct is obscured by overlying bowel gas. Visualized portions of the right kidney demonstrate no evidence of hydronephrosis, nephrolithiasis, or solid mass. IMPRESSION: Limited examination due to overlying bowel gas. Cholelithiasis with wall thickening however no pericholecystic fluid or positive sonographic Shin's sign. Findings are equivocal for acute cholecystitis. Consider further evaluation with nuclear medic ine HIDA scan.
[2023-01-03] MEDS: HEPARIN SODIUM,PORCINE 5,000 UNIT/ML 1 ML VIAL SQ SCH ×2 (10:34→21:37)
[2023-01-03] MEDS: SIMETHICONE 40 MG/0.6 ML DROPS 2,000 MG/30 ML BOTTLE PO SCH ×4 (10:35→21:37)
[2023-01-03 11:19] LABS: Basophils % (A) 0 %; Eosinophils # (A) 0.1 k/uL (0-0.7); Eosinophils % (A) 1 %; HCT 38.1 % (39.0-53.0); HGB 12.9 gm/dL (13.0-17.5); Lymphocytes # (A) 1.2 k/uL (1.0-4.8); Lymphocytes % (A) 10 %; MCH 31.7 pg (25.0-35.0); MCHC 33.9 g/dL (31.0-37.0); MCV 93.4 fL (80.0-100.0); Mean Platelet Volume 7.7; Monocytes # (A) 0.7 k/uL (0-1.0); Monocytes % (A) 6 %; Neutrophils # (A) 9.5 k/uL (1.3-7.7); Neutrophils % (A) 82 %; Platelet Count 198 k/uL (150-450); RBC 4.08 m/uL (4.30-5.90); WBC 11.6 k/uL (3.8-10.6)
[2023-01-03 11:40] LABS: ALT 43 U/L (4-49); AST 22 U/L (17-59); African American GFR (CKD) >90 (>60 ml/min/1.73 sqM); Albumin 3.1 g/dL (3.5-5.0); Albumin/Globulin Ratio 1.1; Alkaline Phosphatase 53 U/L (38-126); Anion Gap 8 mmol/L; Blood Urea Nitrogen 15 mg/dL (9-20); Calcium 8.4 mg/dL (8.4-10.2); Carbon Dioxide 24 mmol/L (22-30); Chloride 104 mmol/L (98-107); Globulin 2.7 g/dL; Glucose 110 mg/dL (74-99); Non-African American GFR(CKD) >90 (>60 ml/min/1.73 sqM); Potassium 3.7 mmol/L (3.5-5.1); Sodium 136 mmol/L (137-145); Total Protein 5.8 g/dL (6.3-8.2)
[2023-01-03] MEDS ORDERED: IV FLUID CONTINUATION 400 ML IV ONE (14:40)
[2023-01-03] MEDS ORDERED: IV FLUID CONTINUATION 600 ML IV ONE (14:40)
[2023-01-03] MEDS ORDERED: HEPARIN SODIUM,PORCINE/PF 5,000 UNIT/0.5 ML SYRINGE SQ ONE (14:46)
[2023-01-03] MEDS ORDERED: TAMSULOSIN 0.4 MG CAP.ER.24H PO ONE (14:51)
[2023-01-03] MEDS ORDERED: ONDANSETRON 4 MG/2 ML VIAL IVP ONE (15:05)
[2023-01-03] MEDS ORDERED: DEXAMETHASONE SOD PHOSPHATE 4 MG/ML 1 ML VIAL IVP ONE (15:06)
[2023-01-03] MEDS ORDERED: ROCURONIUM 10 MG/ML (5 ML VIAL) IV ONE (15:38)
[2023-01-03] MEDS ORDERED: NEOSTIGMINE 1 MG/ML 10 ML VIAL ONE (15:38)
[2023-01-03] MEDS ORDERED: SUCCINYLCHOLINE CHLORIDE 200 MG/10 ML VIAL IV ONE (15:38)
[2023-01-03] MEDS ORDERED: PROPOFOL 10 MG/ML 20 ML VIAL IV ONE (15:38)
[2023-01-03] MEDS ORDERED: MIDAZOLAM 2 MG/2 ML VIAL ONE (15:38)
[2023-01-03] MEDS ORDERED: HYDROmorphone (PF) 1 MG/ML ONE (15:38)
[2023-01-03] MEDS ORDERED: fentaNYL (PF) 50 MCG/ML 2 ML AMP ONE (15:38)
[2023-01-03] MEDS ORDERED: LIDOCAINE 1% INJ 10MG/ML (20 ML MDV) ONE (15:38)
[2023-01-03] MEDS ORDERED: GLYCOPYRROLATE 0.2 MG/ML 2 ML VIAL ONE (15:38)
[2023-01-03] MEDS ORDERED: KETOROLAC 15 MG/ML 1 ML VIAL ONE (15:38)
[2023-01-03] MEDS ORDERED: INDOCYANINE GREEN 25 MG VIAL IV ONE (15:38)
[2023-01-03] MEDS ORDERED: LIDOCAINE 0.5%-EPI 1:200,000 50 ML VIAL SQ ONE (15:59)
[2023-01-03] MEDS ORDERED: IV FLUID CONTINUATION 1,000 ML IV ONE (17:16)
[2023-01-03] MEDS ORDERED: HYDROmorphone 0.5 MG/0.5 ML SYRINGE IVP ONE (19:22)
[2023-01-03] MEDS ORDERED: SODIUM CHLORIDE 0.9% 1,000 ML IV ONE (19:27)
--- NOTE | 2023-01-03 21:41 | P.OP ---
Date of Procedure: 01/03/23 Description of Procedure: SURGEON: MITCHELL MURRELL MD PREOPERATIVE DIAGNOSES: 1. Acute cholecystitis due to gallstones 2. Obesity due to excess calories, BMI 31.7 3. Elevated liver enzymes 4. Choledocholithiasis POSTOPERATIVE DIAGNOSES: 1. Acute gangrenous cholecystitis with cystic duct obstruction due to gallstones 2. Obesity due to excess calories, BMI 31.7 3. Elevated liver enzymes 4. Choledocholithiasis 5. Right upper quadrant peritoneal adhesions OPERATION: 1. Robotic-assisted da Nuria Xi laparoscopic lysis of adhesions over 1 hour 2. Robotic-assisted da Nuria Xi laparoscopic cholecystectomy, multiport with FIREFLY 3. Placement of round #19 Yg-Lucia drain, hepatic fossa ESTIMATED BLOOD LOSS: 50 mL. SPECIMENS REMOVED: Gallbladder. COMPLICATIONS: None. OPERATIVE FINDINGS: 1. Acute hemorrhagic gangrenous cholecystitis with hydrops and distended ga llbladder 2. Indocyanine green confirms acute cholecystitis with lack of contrast in gallbladder 3. Common bile duct within normal limits, without dilation 4. Moderate enlarged gallbladder with torsion and posterior extension to common bile duct INDICATIONS: The patient is a 67 year-old male who presents with epigastric right upper quadrant pain, symptomatic gallstones, WBC over 14,000, and clinical features of acute cholecystitis. Antibiotic management including pain management was prescribed to manage cholecystitis. Cardiac risk assessment was performed prior to surgery. Surgical intervention with cholecystectomy was described. Robotic assisted laparoscopic approach was described. Benefits and risks of the procedure including but not limited to bleeding, infection, injury to the biliary tree was reviewed. Informed consent was obtained. DESCRIPTION OF PROCEDURE: Patient was brought to the operating room, placed in supine position. After general induction, the abdomen had been prepped and draped in standard sterile fashion. The robotic da Nuria XI system was primed. After a timeout protocol was performed, the patient had been prepped and draped in standard sterile fashion. The patient was injected with indocyanine green. A 5 mm 0 degrees laparoscopic trocar entry was performed along the left upper quadrant. The abdomen insufflated to 15 mmHg pressure which was tolerated well. Diagnostic laparoscopy demonstrated no injury to bowel viscera or mesentery. The liver surface was unremarkable. A moderately distended gallbladder was identified adding complexity to the case. Next, two 8 mm robotic ports were placed along the right upper abdomen. The camera 8-mm port was maintained along the epigastrium. Another 12 mm port was placed along the left upper abdominal wall after exchanging the 5 mm port. Please note that the ports were placed at least 10 to 15 cm away from the target anatomy of the gallbladder. The robot was docked along the left lateral abdomen. The patient was repositioned in reverse Trendelenburg position at 21 with the right side up 7. Using a grasper for arm 3, a grasper for arm 4, including hook cautery for arm 1, the robotic system was docked and primed as described. Instruments were interchanged by the car rental sales assistant including hook cautery, Bovie cautery and clip appliers. Additional instruments including vessel sealer, robotic suction portfolio assistant, robotic stapler were made available. I had sat at the console. The gallbladder was encased in surrounding tissue including the proximal transverse colon, omentum adding complexity to the case and requiring extensive lysis of adhesions using blunt and sharp dissection using vessel sealer including hook artery for over one hour. The gallbladder was reflected towards the dome of the liver. The gallbladder was moderately distended adding complexity to the case. Edema was found along the cystic triangle including infundibulum. Initial dissection was performed on the gallbladder infundibulum using indocyanine green to illuminate the cystic duct and common bile duct. Due to moderate distention of the infundibulum, dome down technique was performed removing the gallbladder from the hepatic fossa starting from the fundus towards the infundibulum. Using a sponge, the liver was reflected towards the diaphragm and starting at the gallbladder fundus, hook cautery was used between the liver and the gallbladder. As the gallbladder was dissected from the hepatic fossa, hemostasis was checked using vessel sealer along the posterior gallbladder. Next, indocyanine green was used to confirm the common bile duct as well as cystic duct. The entire gallbladder was without contrast consistent with acute cholecystitis. The infundibulum was densely adhered to the common bile duct and with posterior extension about the common bile duct. FIREFLY was used to identify the common bile duct. Robotic 30 mm green staple loads were fired across the infundibulum as the cystic duct and cystic structures were moderately edematous. Bleeding along the liver bed was controlled using sponges. Indocyanine green was used to confirm no bile leak from the staple line. Sp onges were removed from the abdomen. The robot was undocked. I re-scrubbed into the case. A 15-mm Endo Catch bag was used to remove the gallbladder in total via the left upper quadrant incision after widening the incision to 6 cm due to its size. The specimen was removed from the abdominal cavity. David Cervantes and 0 Vicryl was used to close the fascial defect of the left upper quadrant. A round #19 drain was placed along the right upper quadrant at the hepatic fossa and exited via the right lateral trocar. A drain stitch 2-0 nylon was placed. All pneumoperitoneum instruments were evacuated from the abdominal cavity. The incisions were cleansed using dilute hydrogen peroxide. The incisions were reapproximated using 4-0 Monocryl in an interrupted subcuticular fashion. Please note along the trocar sites, local anesthetic was placed as a field block prior to insertion of all instruments. Liquid glue was applied to the skin. Optifoam was placed along the CAITLYN site for the left upper quadrant. At the end of the procedure needle, sponge, and instrument count had been verified correct by the surgical endoscopist. The patient was transferred to postanesthesia care unit in stable condition. Intraoperative films were shared with the patient's family who were pleased with the level of care.
[2023-01-03] MEDS: KETOROLAC 15 MG/ML 1 ML VIAL IVP SCH (23:00)
[2023-01-04] MEDS: PIPERACILLIN-TAZOBACTAM 3.375 GM in SODIUM CHLORIDE 0.9% 100 ML IVPB SCH ×3 (00:08→17:03)
[2023-01-04] MEDS: metroNIDAZOLE-NS PMX 500 MG in SALINE 1 100ML.BAG IVPB SCH ×4 (05:41→23:10)
[2023-01-04] MEDS: KETOROLAC 15 MG/ML 1 ML VIAL IVP SCH ×4 (05:41→23:10)
[2023-01-04] MEDS: SODIUM CHLORIDE 0.9% 1,000 ML IV SCH ×3 (05:42→23:11)
[2023-01-04] MEDS: TAMSULOSIN 0.4 MG CAP.ER.24H PO SCH (08:03)
[2023-01-04] MEDS: HEPARIN SODIUM,PORCINE 5,000 UNIT/ML 1 ML VIAL SQ SCH ×2 (08:04→21:46)
[2023-01-04] MEDS: SIMETHICONE 40 MG/0.6 ML DROPS 2,000 MG/30 ML BOTTLE PO SCH ×4 (08:12→21:46)
[2023-01-04 11:03] LABS: ALT 65 U/L (10-49); AST 57 U/L (14-35); Albumin 3.4 d/dL (3.8-4.9); Albumin/Globulin Ratio 1.48 Ratio (1.60-3.17); Alkaline Phosphatase 52 U/L (41-126); BUN/Creat Ratio 22.22 Ratio (12.00-20.00); Basophils # (A) 0.02 X 10*3/uL (0.00-0.10); Basophils % (A) 0.2 %; Calcium 8.5 mg/dL (8.7-10.3); Carbon Dioxide 23.3 mmol/L (21.6-31.8); Chloride 101 mmol/L (96-109); Eosinophils # (A) 0 X 10*3/uL (0.04-0.35); Eosinophils % (A) 0 %; Globulin 2.3 d/dL (1.6-3.3); Glucose 144 mg/dL (70-110); HCT 36.5 % (39.6-50.0); HGB 12.6 d/dL (13.0-17.0); Lymphocytes # (A) 0.63 X 10*3/uL (0.90-5.00); Lymphocytes % (A) 5.9 %; MCH 31.7 pg (27.0-32.0); MCHC 34.5 d/dL (32.0-37.0); MCV 91.7 FL (80.0-97.0); Mean Platelet Volume 10.7 FL (9.5-12.2); Monocytes # (A) 0.86 X 10*3/uL (0.20-1.00); Monocytes % (A) 8.1 %; NRBC Per 100 WBC 0 X 10*3/uL (0.00-0.01); Neutrophils # (A) 9.06 X 10*3/uL (1.80-7.70); Neutrophils % (A) 85.4 %; Platelet Count 233 X 10*3/uL (140-440); Potassium 4.3 mmol/L (3.5-5.5); RBC 3.98 X 10*6/uL (4.40-5.60); RDW 11.9 % (11.5-14.5); Sodium 135 mmol/L (135-145); Total Bilirubin 0.5 mg/dL (0.3-1.2); Total Protein 5.7 d/dL (6.2-8.2); WBC 10.61 X 10*3/uL (4.50-10.00)
--- NOTE | 2023-01-04 14:50 | P.PN ---
Subjective Progress Note Date: 01/04/23 CHIEF COMPLAINT: Abdominal pain HISTORY OF PRESENT ILLNESS: Patient is postop day #1 status post robotic- assisted laparoscopic lysis of adhesions and laparoscopic cholecystectomy. Patient reports improvement in his abdominal pain. He does have pain at incision sites. He does feel mildly bloated. Denies any nausea or vomiting. No flatus. He reports this pain is controlled. Tolerating low-fat diet. Afebrile. WBC is trending down from 11.6-10.61 Hgb 12.6 platelets 233 total bilirubin 0.5 mg M slightly elevated. AST 57 ALT 65 alk phos 52 PHYSICAL EXAM: VITAL SIGNS: Reviewed GENERAL: Well-developed in no acute distress. HEENT: No sclera icterus. Extraocular movements grossly intact. Moist buccal mucosa. Head is atraumatic, normocephalic. Hears conversational speech. No nasal drainage. NECK: Supple without lymphadenopathy. CHEST: Non-labored respirations and equal bilateral excursions. CARDIOVASCULAR: Palpable 2+ radial pulses. ABDOMEN: Soft. Nondistended. Tender incision sites. Incision sites clean dry and intact. Left incisional dressing and some mild blood saturation noted. CAITLYN drain serosanguineous MUSCULOSKELETAL: No clubbing or cyanosis. NEUROLOGIC: No focal or lateralizing signs. Cranial nerves II through XII grossly intact. PSYCH: Appropriate affect. Alert and oriented to person, place and time. SKIN: Well perfused. Good skin turgor. ASSESSMENT: 1. Acute gangrenous cholecystitis with cystic duct obstruction due to gallstones 2. Obesity due to excess calories, BMI 31.7 3. Elevated liver enzymes 4. Choledocholithiasis 5. Right upper quadrant peritoneal adhesions PLAN: -Continue antibiotics -Continue pain management -Continue low-fat diet -Repeat labs in a.m. 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 Signing provider agrees with the documented findings, assessment, and plan of care. Objective - Vital Signs Vital signs: Vital Signs Temp 98.0 F 01/04/23 07:08 Pulse 65 01/04/23 07:08 Resp 16 01/04/23 07:08 BP 126/78 01/04/23 07:08 Pulse Ox 93 L 01/04/23 07:08 FiO2 Intake & Output 01/03/23 01/04/23 01/04/23 18:59 06:59 18:59 Intake Total 1100 100 Output Total 50 40 420 Balance 1050 60 -420 Intake: IV 1100 100 Output: Drainage 40 20 Right Abdomen 40 20 Urine 400 Estimated Blood Loss 50 Other: Voiding Method Toilet Toilet Urinal Urinal # Voids 1 - Labs CBC & Chem 7: 01/04/23 05:20 01/04/23 05:20 Labs: Abnormal Lab Results - Last 24 Hours (Table) 01/04/23 01/04/23 Range/Units 05:20 05:20 WBC 10.61 H (4.50-10.00) X 10*3/uL RBC 3.98 L (4.40-5.60) X 10*6/uL Hgb 12.6 L (13.0-17.0) d/dL Hct 36.5 L (39.6-50.0) % Neutrophils # 9.06 H (1.80-7.70) X 10*3/uL Lymphocytes # 0.63 L (0.90-5.00) X 10*3/uL Eosinophils # 0 L (0.04-0.35) X 10*3/uL BUN/Creatinine Ratio 22.22 H (12.00-20.00) Ratio Glucose 144 H (70-110) mg/dL Calcium 8.5 L (8.7-10.3) mg/dL AST 57 H (14-35) U/L ALT 65 H (10-49) U/L Total Protein 5.7 L (6.2-8.2) d/dL Albumin 3.4 L (3.8-4.9) d/dL Albumin/Globulin Ratio 1.48 L (1.60-3.17) Ratio
[2023-01-05] MEDS: PIPERACILLIN-TAZOBACTAM 3.375 GM in SODIUM CHLORIDE 0.9% 100 ML IVPB SCH ×2 (01:03→09:06)
[2023-01-05] MEDS: SODIUM CHLORIDE 0.9% 1,000 ML IV SCH ×3 (05:31→13:08)
[2023-01-05] MEDS: KETOROLAC 15 MG/ML 1 ML VIAL IVP SCH ×2 (05:34→11:41)
[2023-01-05] MEDS: metroNIDAZOLE-NS PMX 500 MG in SALINE 1 100ML.BAG IVPB SCH ×2 (05:34→11:41)
[2023-01-05 07:56] VITALS: RESP 15; TEMP 98.2
[2023-01-05] MEDS: HEPARIN SODIUM,PORCINE 5,000 UNIT/ML 1 ML VIAL SQ SCH (09:04)
[2023-01-05] MEDS: SIMETHICONE 40 MG/0.6 ML DROPS 2,000 MG/30 ML BOTTLE PO SCH ×2 (09:07→14:03)
[2023-01-05] MEDS: TAMSULOSIN 0.4 MG CAP.ER.24H PO SCH (09:07)
[2023-01-05 10:17] LABS: Basophils % (A) 0 %; Eosinophils # (A) 0.1 k/uL (0-0.7); Eosinophils % (A) 2 %; HCT 38.4 % (39.0-53.0); HGB 12.7 gm/dL (13.0-17.5); Lymphocytes # (A) 1.7 k/uL (1.0-4.8); Lymphocytes % (A) 23 %; MCH 31.3 pg (25.0-35.0); Mean Platelet Volume 7.9; Monocytes # (A) 0.5 k/uL (0-1.0); Monocytes % (A) 6 %; Neutrophils # (A) 5.2 k/uL (1.3-7.7); Neutrophils % (A) 68 %; Platelet Count 252 k/uL (150-450); RBC 4.04 m/uL (4.30-5.90); RDW 11.9 % (11.5-15.5); WBC 7.6 k/uL (3.8-10.6)
[2023-01-05] MEDS ORDERED: DOCUSATE 100 MG CAP PO SCH (10:45)
[2023-01-05 12:14] LABS: ALT 56 U/L (4-49); AST 47 U/L (17-59); African American GFR (CKD) >90 (>60 ml/min/1.73 sqM); Albumin 3.3 g/dL (3.5-5.0); Albumin/Globulin Ratio 1.3; Alkaline Phosphatase 64 U/L (38-126); Anion Gap 9 mmol/L; Blood Urea Nitrogen 19 mg/dL (9-20); Calcium 8.5 mg/dL (8.4-10.2); Carbon Dioxide 22 mmol/L (22-30); Chloride 106 mmol/L (98-107); Globulin 2.6 g/dL; Glucose 167 mg/dL (74-99); Non-African American GFR(CKD) 81 (>60 ml/min/1.73 sqM); Potassium 3.7 mmol/L (3.5-5.1); Sodium 137 mmol/L (137-145); Total Bilirubin 0.3 mg/dL (0.2-1.3); Total Protein 5.9 g/dL (6.3-8.2)
--- NOTE | 2023-01-05 13:06 | P.DS ---
Providers Date of admission: 01/03/23 08:12 Expected date of discharge: 01/05/23 Attending physician: Samreen Way Consults: 01/01/23 21:47 Consult Physician Routine Consulting Provider: [facility] Consult Reason/Comments: [facility] Do you want consulting provider notified?: Yes 01/02/23 12:55 Consult Physician Routine Consulting Provider: [facility] Consult Reason/Comments: [facility]est[facility] Do you want consulting provider notified?: Yes Primary care physician: Donavon Mckinney Hospital Course: Discharge diagnosis 1. Acute gangrenous cholecystitis with cystic duct obstruction due to gallstones 2. Obesity due to excess calories, BMI 31.7 3. Elevated liver enzymes 4. Choledocholithiasis 5. Right upper quadrant peritoneal adhesions Hospital course The patient is a 67 year old male who presents with diffuse abdominal pain after 1:30 pm yesterday eating a meatloaf sandwich. He reports new moderate abdominal distention. He had diagnostic studies demonstrating new acute cholecystitis. Patient is status post Robotic-assisted laparoscopic lysis of adhesions and laparoscopic cholecystectomy for acute gangrenous cholecystitis with cystic duct obstruction due to gallstones. Patient tolerated surgery well. His pain is controlled. He is tolerating diet. He has been up and ambulating. He is afebrile. White count has normalized. Liver enzymes trended downwards. Patient is stable for discharge. Physician Cash Application Representative note has been reviewed by physician. Signing provider agrees with the documented findings, assessment, and plan of care. Patient Condition at Discharge: Stable Plan - Discharge Summary Discharge Rx Participant: Yes New Discharge Prescriptions: New Ibuprofen [Motrin] 600 mg PO Q8HR PRN #30 tab PRN Reason: Pain Acetaminophen Oral Susp [Tylenol] 1,000 mg PO Q6H #400 ml Discharge Medication List Acetaminophen Oral Susp [Tylenol] 1,000 mg PO Q6H #400 ml 01/05/23 [Rx] Ibuprofen [Motrin] 600 mg PO Q8HR PRN #30 tab 01/05/23 [Rx] Follow up Appointment(s)/Referral(s): Donavon Mckinney MD [Primary Care Provider] - 1-[address] MD [STAFF PHYSICIAN] - 01/11/23 Activity/Diet/Wound Care/Special Instructions: Wear abdominal binder at all times for comfort. No lifting over 4 pounds in 4 weeks You May shower. No bath tub soaks for two weeks Use Tylenol and ibuprofen scheduled for the next 24-48 hours for best pain relief. Use ice along incisions for the today to prevent swelling. Discharge Disposition: HOME SELF-CARE
[2023-01-05 14:06] VITALS: BP 133/76; PULSE 52
== END 2023-01-05 15:07 | disposition home or self-care (01) | DRG 419 ==
LOC: EC 07:19 → 4SSUR 09:30 → OBSVTOIN 01-03 08:12
PROVIDERS: ADMIT Surgery Plastic and Reconstructive Surgery; ATTEND Surgery Plastic and Reconstructive Surgery
PROC: BF53200 Other Imaging of Gallbladder and Bile Ducts using Fluorescing Agent, Indocyanine Green Dye, Intraoperative (ICD-10-PCS; principal; 2023-01-03 07:30)
PROC: 8E0W4CZ Robotic Assisted Procedure of Trunk Region, Percutaneous Endoscopic Approach (ICD-10-PCS; principal; 2023-01-03 07:30)
PROC: 0DNW4ZZ Release Peritoneum, Percutaneous Endoscopic Approach (ICD-10-PCS; principal; 2023-01-03 07:30)
PROC: 0FT44ZZ Resection of Gallbladder, Percutaneous Endoscopic Approach (ICD-10-PCS; principal; 2023-01-03 07:30)
DX: K80.63 Calculus of gallbladder and bile duct with acute cholecystitis with obstruction (principal); K82.A1 Gangrene of gallbladder in cholecystitis; Z28.310 Unvaccinated for COVID-19; K74.60 Unspecified cirrhosis of liver; E66.09 Other obesity due to excess calories; Z68.31 Body mass index [BMI] 31.0-31.9, adult; R00.1 Bradycardia, unspecified; Z96.643 Presence of artificial hip joint, bilateral; K66.0 Peritoneal adhesions (postprocedural) (postinfection); R94.31 Abnormal electrocardiogram [ECG] [EKG]
CPT/HCPCS: 36415; 74177; 76705; 80053; 81003; 82150; 83605; 83690; 84484; 85025; 85610; 85730; 88304; 93005; 93306; 96374; 96375; 99285